=== PATIENT | male | born 1960 | race Caucasian/White ===

== ENCOUNTER 2017-12-13 10:33 | Day surgery (SDC) | payer BC ==
[~2017-12-13 10:33] MED LIST: Lactated Ringers 1,000 ML IV SCH; Midazolam 1 MG/ML 2 ML SDV ONE; Propofol 200 MG/20 ML SDV ONE; fentaNYL 100 MCG/2 ML SDV ONE
--- NOTE | 2017-12-13 11:11 | PCM.PREANE ---
Preanesthetic Assessment - Anesthesia/Transfusion/Family Hx Anesthesia History: Prior Anesthesia Without Reaction Family History of Anesthesia Reaction: No Transfusion History: No Prior Transfusion(s) Intubation History: Unknown - Review of Systems General: No Symptoms Pulmonary: No Symptoms Cardiovascular: No Symptoms Gastrointestinal: Constipation Neurological: No Symptoms Other: Reports: None - Physical Assessment Height: 1.73 m Weight: 81.193 kg ASA Class: 2 Mental Status: Alert & Oriented x3 Airway Class: Mallampati = 2 Dentition: Reports: Normal Dentition Thyro-Mental Finger Breadths: 3 Mouth Opening Finger Breadths: 2 ROM/Head Extension: Full Lungs: Clear to Auscultation, Normal Respiratory Effort Cardiovascular: Regular Rate, Regular Rhythm - Allergies Allergies/Adverse Reactions: Allergies Allergy/AdvReac Type Severity Reaction Status Date / Time No Known Allergies Allergy Verified 12/07/17 13:07 - Blood Blood Available: No - Anesthesia Plan Pre-Op Medication Ordered: None - Acknowledgements Anesthesia Type Planned: MAC Pt an Appropriate Candidate for the Planned Anesthesia: Yes Alternatives and Risks of Anesthesia Discussed w Pt/Guardian: Yes Pt/Guardian Understands and Agrees with Anesthesia Plan: Yes PreAnesthesia Questionnaire Other HEENT History: using reading glasses Cardiovascular History: Reports: High Cholesterol, Other (See Below) Other Cardiovascular History: was prescribed statin medication- never took it Gastrointestinal History: Reports: Other (See Below) Other Gastrointestinal History: occasional heartburn Musculoskeletal History: Reports: Arthritis, Back Pain, Chronic Neurological History: Reports: Concussion Psychiatric History: Reports: Depression - Past Surgical History GI Surgical History: Reports: EGD Musculoskeletal Surgical History: Reports: Arthroscopic Knee - SUBSTANCE USE Smoking Status *Q: Never Smoker Recreational Drug Use History: No - HOME MEDS Home Medications: Home Meds . [No Known Home Meds] 12/07/17 [History] - CURRENT (IN HOUSE) MEDS Current Meds: Current Medications Lactated Ringer's (Ringers, Lactated) 1,000 mls @ 125 mls/hr IV ASDIRECTED [facility] Last Admin: 12/13/17 10:56 Dose: 125 mls/hr Discontinued Medications Fentanyl (Sublimaze) Confirm Administered Dose 100 mcg .ROUTE .STK-MED ONE Stop: 12/13/17 08:11 Midazolam HCl (Versed 1 Mg/Ml) Confirm Administered Dose 2 mg .ROUTE .STK-MED ONE Stop: 12/13/17 08:11 Propofol (Diprivan 20 Ml) Confirm Administered Dose 200 mg .ROUTE .[facility] ONE Stop: 12/13/17 08:11
[2017-12-13] MEDS ORDERED: Propofol 200 MG/20 ML SDV ONE (11:47)
--- NOTE | 2017-12-13 12:06 | PCM.OPNOTE ---
- General Post-Op/Procedure Note Date of Surgery/Procedure: 12/13/17 Operative Procedure(s): Colonoscopy with cold sigmoid colon polypectomy Pre Op Diagnosis: Change in bowel habits. Decreased stool caliber. Post-Op Diagnosis: Sigmoid polyp. Sigmoid diverticulosis. Anesthesia Technique: MAC (ASA II) Primary Surgeon: Ketan Dior Condition: Good Free Text/Narrative:: Dictation [id number] CPT CODE [id number]
[2017-12-13] MEDS ORDERED: Lactated Ringers 1,000 ML IV SCH (12:15)
--- NOTE | 2017-12-13 12:58 | PCM48HPAN ---
Post Anesthesia Note - EVALUATION WITHIN 48HRS OF ANESTHETIC Vital Signs in Normal Range: Yes Patient Participated in Evaluation: Yes Respiratory Function Stable: Yes Airway Patent: Yes Hydration Status Stable: Yes Pain Control Satisfactory: Yes Nausea and Vomiting Control Satisfactory: Yes Mental Status Recovered: Yes Resp Rate: 11 - COMMENTS/OBSERVATIONS Free Text/Narrative:: no anesthesia problems
--- NOTE | 2017-12-13 13:01 | OR ---
SURGEON: Ketan Dior M.D. DATE OF PROCEDURE: 12/13/2017 OPERATION PERFORMED: Colonoscopy with cold sigmoid polypectomy. ANESTHESIA: MAC. ASA CLASSIFICATION: II. PREOPERATIVE DIAGNOSES: Change in bowel habits with increasing constipation and decreased caliber of stool. POSTOPERATIVE DIAGNOSES: 1. Small sigmoid polyp. 2. Sigmoid diverticulosis. DESCRIPTION OF PROCEDURE: The patient was taken to the endoscopy room and positioned on the endoscopy table in the left lateral decubitus position. Time-out was called for appropriate identification of the patient and procedure. Monitored anesthesia care was provided. The colonoscope was inserted into the rectum and advanced with moderate difficulty to the cecum where the colonoscope was retroflexed to visualize the ascending colon from below. The colonoscope was then straightened and slowly withdrawn. The cecum, ascending colon, hepatic flexure, transverse colon, splenic flexure, and descending colon showed no tumors, polyps, diverticula, angiodysplasia, or evidence of inflammatory bowel disease. The colonoscope was withdrawn through the sigmoid colon. One small polyp was encountered and removed with the cold biopsy forceps. Numerous small sigmoid diverticula were noted. No stricture, spasm, or bleeding was noted. No tumors were encountered. Once the colonoscope was withdrawn to the rectum, it was retroflexed to visualize the anal orifice from above. Again, no tumors or polyps were seen, and there were no acute hemorrhoidal changes. The colonoscope was then straightened, the rectum aspirated, and the colonoscope removed. The patient tolerated the procedure well and was taken to recovery room in stable condition. CHESTER / JOSEFINA /[id number]
== END 2017-12-13 13:00 | disposition home or self-care (01) ==
LOC: MW.SDS 10:33
PROVIDERS: ATTEND Surgery
DX: D12.5 Benign neoplasm of sigmoid colon (principal); K57.30 Diverticulosis of large intestine without perforation or abscess without bleeding; E78.00 Pure hypercholesterolemia, unspecified; M19.90 Unspecified osteoarthritis, unspecified site; G89.29 Other chronic pain; M54.9 Dorsalgia, unspecified; F32.9 Major depressive disorder, single episode, unspecified; E78.5 Hyperlipidemia, unspecified; E66.9 Obesity, unspecified; Z68.27 Body mass index [BMI] 27.0-27.9, adult; Z79.899 Other long term (current) drug therapy
CPT/HCPCS: 45380; J2250; J3010; J7120; 88305; J2704

== ENCOUNTER 2019-01-27 09:53 | Emergency (ER) | payer BC ==
--- NOTE | 2019-01-27 09:56 | EDM.PDOC ---
ED HPI GENERAL MEDICAL PROBLEM - General Chief Complaint: Abdominal Pain Stated Complaint: BODY FEELS NUMB Time Seen by Provider: 01/27/19 09:56 Source of Information: Reports: Patient - History of Present Illness INITIAL COMMENTS - FREE TEXT/NARRATIVE: HISTORY AND PHYSICAL: History of present illness: [Patient presents with some intermittent abdominal pain over the last few months associated with food he does eat [employer] regularly and has his pain an hour to 3 hours after eating last night he awoke with abdominal pain which is cause some anxiety?panic as this has been going on for some time now As recently seen his primary care provider and cleaned out his bowels with MiraLAX over the last week constipation has been a problem currently it is not with MiraLAX No fever nausea vomiting chills sweats no chest pain shortness breath headache dizziness palpitation no bowel or urine symptoms at current ] Review of systems: As per history of present illness and below otherwise all systems reviewed and negative. Past medical history: As per history of present illness and as reviewed below otherwise noncontributory. Surgical history: As per history of present illness and as reviewed below otherwise noncontributory. Social history: No reported history of drug or alcohol abuse. Family history: As per history of present illness and as reviewed below otherwise noncontributory. Physical exam: HEENT: Atraumatic, normocephalic, pupils reactive, negative for conjunctival pallor or scleral icterus, mucous membranes moist, throat clear, neck supple, nontender, trachea midline. Lungs: Clear to auscultation, breath sounds equal bilaterally, chest nontender. Heart: S1S2, regular, negative for clicks, rubs, or JVD. Abdomen: Soft, nondistended, nontender. Negative for masses or hepatosplenomegaly. Negative for costovertebral tenderness. Pelvis: Stable nontender. Genitourinary: Deferred. Rectal: Deferred. Extremities: Atraumatic, negative for cords or calf pain. Neurovascular unremarkable. Neuro: Awake, alert, oriented. Cranial nerves II through XII unremarkable. Cerebellum unremarkable. Motor and sensory unremarkable throughout. Exam nonfocal. Diagnostics: [EBC CMP UA lipase Abdomen limited ultrasound ] Therapeutics: [ bland diet Follow-up with general surgery ] Impression: [ cholelithiasis Anxiety about health ] Definitive disposition and diagnosis as appropriate pending reevaluation and review of above. Abdominal Pain Score (Numeric/FACES): 10 - Related Data Allergies Allergy/AdvReac Type Severity Reaction Status Date / Time No Known Allergies Allergy Verified 01/27/19 09:55 Home Meds: Home Meds Sertraline [Zoloft] 50 mg PO DAILY 01/27/19 [History] Past Medical History Other HEENT History: using reading glasses Cardiovascular History: Reports: High Cholesterol, Other (See Below) Other Cardiovascular History: was prescribed statin medication- never took it Gastrointestinal History: Reports: Other (See Below) Other Gastrointestinal History: occasional heartburn Musculoskeletal History: Reports: Arthritis, Back Pain, Chronic Neurological History: Reports: Concussion Psychiatric History: Reports: Depression - Past Surgical History GI Surgical History: Reports: EGD Musculoskeletal Surgical History: Reports: Arthroscopic Knee ED ROS GENERAL - Review of Systems Review Of Systems: See Below ED EXAM, GENERAL - Physical Exam Exam: See Below Course - Vital Signs Last Recorded V/S: Last Vital Signs Temp 96.5 F 01/27/19 09:56 Pulse 74 01/27/19 11:28 Resp 16 01/27/19 11:28 BP 142/92 H 01/27/19 11:28 Pulse Ox 99 01/27/19 11:28 - Orders/Labs/Meds Orders: Active Orders 24 hr Category Date Time Status EKG Documentation Completion [RC] STAT Care 01/27/19 09:55 Active UA RFX LORE AND CULT IF INDIC [URIN] Stat Lab 01/27/19 09:55 Ordered Labs: Laboratory Tests 01/27/19 01/27/19 01/27/19 Range/Units 09:18 09:58 09:58 WBC 8.23 (4.0-11.0) K/uL RBC 5.60 (4.50-5.90) M/uL Hgb 16.8 (13.0-17.0) g/dL Hct 48.5 (38.0-50.0) % MCV 86.6 (80.0-98.0) fL MCH 30.0 (27.0-32.0) pg MCHC 34.6 (31.0-37.0) g/dL RDW Std Deviation 42.0 (28.0-62.0) fl RDW Coeff of Mati 13 (11.0-15.0) % Plt Count 282 (150-400) K/uL MPV 9.80 (7.40-12.00) fL Neut % (Auto) 72.8 (48.0-80.0) % Lymph % (Auto) 21.1 (16.0-40.0) % Sumter % (Auto) 5.3 (0.0-15.0) % Eos % (Auto) 0.6 (0.0-7.0) % Baso % (Auto) 0.2 (0.0-1.5) % Neut # (Auto) 6.0 H (1.4-5.7) K/uL Lymph # (Auto) 1.7 (0.6-2.4) K/uL Sumter # (Auto) 0.4 (0.0-0.8) K/uL Eos # (Auto) 0.1 (0.0-0.7) K/uL Baso # (Auto) 0.0 (0.0-0.1) K/uL Nucleated RBC % 0.0 /100WBC Nucleated RBCs # 0 K/uL Sodium 131 L (136-148) mmol/L Potassium 3.9 (3.5-5.1) mmol/L Chloride 97 L (98-107) mmol/L Carbon Dioxide 23.2 (21.0-32.0) mmol/L BUN 15 (7.0-18.0) mg/dL Creatinine 1.2 (0.8-1.3) mg/dL Est Cr Clr Drug Dosing 65.71 mL/min Estimated GFR (MDRD) > 60.0 ml/min Glucose 141 H (74-106) mg/dL Calcium 9.8 (8.5-10.1) mg/dL Total Bilirubin 1.5 H (0.2-1.0) mg/dL AST 24 (15-37) IU/L ALT 29 (14-63) IU/L Alkaline Phosphatase 88 (46-116) U/L Troponin I < 0.050 (0.000-0.056) ng/mL Total Protein 8.5 H (6.4-8.2) g/dL Albumin 4.5 (3.4-5.0) g/dL Globulin 4.0 (2.6-4.0) g/dL Albumin/Globulin Ratio 1.1 (0.9-1.6) Lipase 115 (73-393) U/L Meds: Medications Discontinued Medications Generic Name Dose Route Start Last Admin Trade Name Isabel PRN Reason Stop Dose Admin Sodium Chloride 1,000 mls @ 999 mls/hr 01/27/19 10:01 01/27/19 10:10 Normal Saline IV 01/27/19 11:01 999 mls/hr STAT ONE Administration Lorazepam 1 mg 01/27/19 10:01 01/27/19 10:10 Ativan IVPUSH 01/27/19 10:02 1 mg ONETIME ONE Administration Departure - Departure Time of Disposition: 12:19 Disposition: Home, Self-Care 01 Condition: Good Clinical Impression: Cholelithiasis - Discharge Information Forms: ED Department Discharge Additional Instructions: Plan diet as discussed Return if symptoms persist or worsen or if new concerning symptoms develop Follow-up with general surgery, call phone number below to schedule appropriate follow-up [facility] - General Surgery [address], [address] [place] [address] The following information is given to patients seen in the emergency department who are being discharged to home. This information is to outline your options for follow-up care. We provide all patients seen in our emergency department with a follow-up referral. The need for follow-up, as well as the timing and circumstances, are variable depending upon the specifics of your emergency department visit. If you don't have a primary care physician on staff, we will provide you with a referral. We always advise you to contact your personal physician following an emergency department visit to inform them of the circumstance of the visit and for follow-up with them and/or the need for any referrals to a consulting specialist. The emergency department will also refer you to a specialist when appropriate. This referral assures that you have the opportunity for follow-up care with a specialist. All of these measure are taken in an effort to provide you with optimal care, which includes your follow-up. Under all circumstances we always encourage you to contact your private physician who remains a resource for coordinating your care. When calling for follow-up care, please make the office aware that this follow-up is from your recent emergency room visit. If for any reason you are refused follow-up, please contact the [facility] emergency department at and asked to speak to the emergency department charge nurse. - My Orders Last 24 Hours: My Active Orders 01/27/19 09:55 EKG Documentation Completion [RC] STAT UA RFX LORE AND CULT IF INDIC [URIN] Stat - Assessment/Plan Last 24 Hours: My Active Orders 01/27/19 09:55 EKG Documentation Completion [RC] STAT UA RFX LORE AND CULT IF INDIC [URIN] Stat
[2019-01-27] MEDS ORDERED: Sodium Chloride 0.9% 1,000 ML IV ONE (10:01)
[2019-01-27] MEDS ORDERED: LORazepam 2 MG/ML SDV IVPUSH ONE (10:01)
[2019-01-27 10:36] LABS: CHLORIDE,CL 97 mmol/L (98-107); SODIUM,NA 131 mmol/L (136-148)
--- NOTE | 2019-01-27 11:19 | CR ---
INDICATION: Chest pain COMPARISON: none TECHNIQUE: Portable AP erect chest performed at 10:05 a.m. FINDINGS: The lungs are clear. There is no evidence of pneumothorax. The heart, mediastinum and pulmonary vessels are of normal size. There is no evidence of pleural fluid. IMPRESSION: Negative chest. Dictated by Ryan Quiroga MD @ Jan 27 2019 11:18AM Signed by Dr. Ryan Quiroga @ Jan 27 2019 11:18AM
--- NOTE | 2019-01-27 12:11 | US ---
INDICATION: Abdominal pain for the last 3 weeks. COMPARISON: Chest radiograph January 27, 2019. TECHNIQUE: Ultrasound examination of the right upper quadrant of the abdomen. FINDINGS: Evidence of cholelithiasis. Nondilated common bile duct measuring 4.2 mm in diameter. Gallbladder wall is measuring 2.8 mm in thickness without any pericholecystic fluid collections. Sonographic Moreira`s sign is negative. No pancreatic pathology. Diffuse increase in echogenicity of the liver; rule out fatty infiltration. No focal hepatic pathology. The right kidney is measuring 11.5 x 6.4 x 5.7 cm without any obstructive uropathy or perinephric pathology. A cyst identified in the right kidney measuring 1.4 x 1.8 x 2 cm. IMPRESSION: 1. Cholelithiasis. 2. No evidence of biliary duct dilatation. 3. Sonographic Moreira`s sign is negative. 4. Benign cyst right kidney. 5. Fatty infiltration of the liver. Dictated by Eliz Carrera MD @ Jan 27 2019 12:04PM Signed by Dr. Eliz Carrera @ Jan 27 2019 12:07PM
== END 2019-01-27 12:30 | disposition home or self-care (01) ==
LOC: MW.ED 09:53
DX: K80.20 Calculus of gallbladder without cholecystitis without obstruction (principal); F41.9 Anxiety disorder, unspecified; M19.90 Unspecified osteoarthritis, unspecified site; Z79.899 Other long term (current) drug therapy; F32.9 Major depressive disorder, single episode, unspecified
CPT/HCPCS: 36415; 71045; 76705; 80053; 83690; 84484; 85025; 93005; 96361; 96374; 99284; J2060; J7040; 99283

== ENCOUNTER 2019-02-01 06:31 | Day surgery (SDC) | payer BC ==
[~2019-02-01 06:31] MED LIST changes: -Midazolam 1 MG/ML 2 ML SDV ONE; -Propofol 200 MG/20 ML SDV ONE; +ceFAZolin 2 GM in Premix Bag 1 BAG IV ONE; -fentaNYL 100 MCG/2 ML SDV ONE
[2019-02-01] MEDS ORDERED: fentaNYL 100 MCG/2 ML SDV ONE ×2 (07:08→08:40)
[2019-02-01] MEDS ORDERED: Lidocaine 2% 5 ML SDV ONE (07:08)
[2019-02-01] MEDS ORDERED: Midazolam 1 MG/ML 2 ML SDV ONE (07:08)
[2019-02-01] MEDS ORDERED: Rocuronium 100 MG/10 ML MDV ONE (07:09)
[2019-02-01] MEDS ORDERED: Propofol 200 MG/20 ML SDV ONE (07:09)
[2019-02-01] MEDS ORDERED: Scopolamine 1.5 MG Transdermal Patch TRDERM PRN (07:25)
[2019-02-01] MEDS ORDERED: Bupivacaine 25%/EPINEPHrine/PF 30 ML ONE (07:26)
--- NOTE | 2019-02-01 07:26 | PCM.PREANE ---
Preanesthetic Assessment - Anesthesia/Transfusion/Family Hx Anesthesia History: Prior Anesthesia Without Reaction Family History of Anesthesia Reaction: No Transfusion History: No Prior Transfusion(s) Intubation History: Unknown - Review of Systems General: No Symptoms Pulmonary: No Symptoms Cardiovascular: No Symptoms Gastrointestinal: No Symptoms Neurological: No Symptoms Other: Reports: None - Physical Assessment NPO Status Date: 01/31/19 NPO Status Time: 21:00 O2 Sat by Pulse Oximetry: 99 Respiratory Rate: 16 Vital Signs: Last Vital Signs Temp 96.4 F 02/01/19 06:50 Pulse 75 02/01/19 06:50 Resp 16 02/01/19 06:50 BP 115/82 02/01/19 06:50 Pulse Ox 99 02/01/19 06:50 Height: 5 ft 8 in Weight: 72.575 kg ASA Class: 1 Mental Status: Alert & Oriented x3 Airway Class: Mallampati = 2 Dentition: Reports: Normal Dentition ROM/Head Extension: Full Lungs: Clear to Auscultation, Normal Respiratory Effort Cardiovascular: Regular Rate, Regular Rhythm - Allergies Allergies/Adverse Reactions: Allergies Allergy/AdvReac Type Severity Reaction Status Date / Time No Known Allergies Allergy Verified 01/30/19 16:52 - Blood Blood Available: No - Anesthesia Plan Pre-Op Medication Ordered: None - Acknowledgements Anesthesia Type Planned: General Anesthesia Pt an Appropriate Candidate for the Planned Anesthesia: Yes Alternatives and Risks of Anesthesia Discussed w Pt/Guardian: Yes Pt/Guardian Understands and Agrees with Anesthesia Plan: Yes PreAnesthesia Questionnaire Other HEENT History: wears glasses Cardiovascular History: Gastrointestinal History: Reports: Other (See Below) Other Gastrointestinal History: occasional heartburn Musculoskeletal History: Neurological History: Reports: Concussion Psychiatric History: Reports: Depression - Infectious Disease History Infectious Disease History: Reports: None - Past Surgical History GI Surgical History: Reports: Colonoscopy, EGD Musculoskeletal Surgical History: Reports: Arthroscopic Knee - SUBSTANCE USE Smoking Status *Q: Never Smoker Recreational Drug Use History: No - HOME MEDS Home Medications: Home Meds Sertraline [Zoloft] 50 mg PO DAILY 01/27/19 [History] - CURRENT (IN HOUSE) MEDS Current Meds: Current Medications Lactated Ringer's (Ringers, Lactated) 1,000 mls @ 125 mls/hr IV ASDIRECTED [facility] Last Admin: 02/01/19 07:00 Dose: 125 mls/hr Discontinued Medications Fentanyl (Sublimaze) Confirm Administered Dose 100 mcg .ROUTE .STK-MED ONE Stop: 02/01/19 07:09 Cefazolin Sodium/Dextrose 2 gm (/ Premix) 50 mls @ 100 mls/hr IV ONETIME ONE Stop: 02/01/19 05:29 Lidocaine (Xylocaine-Mpf 2%) Confirm Administered Dose 5 ml .ROUTE .STK-MED ONE Stop: 02/01/19 07:09 Midazolam HCl (Versed 1 Mg/Ml) Confirm Administered Dose 2 mg .ROUTE .STK-MED ONE Stop: 02/01/19 07:09 Propofol (Diprivan 20 Ml) Confirm Administered Dose 200 mg .ROUTE .STK-MED ONE Stop: 02/01/19 07:10 Rocuronium Goodrich (Zemuron) Confirm Administered Dose 100 mg .ROUTE .STK-MED ONE Stop: 02/01/19 07:10
[2019-02-01] MEDS ORDERED: Acetaminophen/oxyCODONE 325-5 MG Tab PO PRN (07:52)
[2019-02-01 08:33] LABS: CHLORIDE,CL 106 mmol/L (98-107); SODIUM,NA 139 mmol/L (136-148)
[2019-02-01] MEDS ORDERED: Octyl 2-Cyanoacrylate 1 Tube ONE (08:37)
[2019-02-01] MEDS ORDERED: Sugammadex Sodium 200 MG/2 ML VIAL ONE (08:37)
[2019-02-01] MEDS ORDERED: Phenylephrine/Normal Saline 100 MCG/ML 10 ML Syringe ONE (08:38)
[2019-02-01] MEDS ORDERED: ceFAZolin/Dextrose,Iso-Osmotic 2 GM/50 ML Duplex Bag IV ONE (08:38)
[2019-02-01] MEDS ORDERED: Ondansetron 4 MG/2 ML SDV ONE (09:01)
[2019-02-01] MEDS ORDERED: fentaNYL 100 MCG/2 ML SDV IVPUSH PRN (09:40)
[2019-02-01] MEDS ORDERED: HYDROmorphone 2 MG/ML SDV IVPUSH ONE (09:40)
[2019-02-01] MEDS ORDERED: Ondansetron 4 MG/2 ML SDV IVPUSH ONE (09:48)
[2019-02-01] MEDS ORDERED: Dexamethasone 10 MG/ML SDV IVPUSH ONE (09:49)
--- NOTE | 2019-02-01 09:56 | PCM.OPNOTE ---
- General Post-Op/Procedure Note Date of Surgery/Procedure: 02/01/19 Operative Procedure(s): 1) lap julisa. 2) biopsy peritoneal deposit Findings: gb is yellow and green cw cholecystitis, and adherence to surrounding organs, cw chronicity; and a peritoneal deposit was biopsyed; incidental finding;see [id number] Pre Op Diagnosis: acute and chronic cholecystitis Post-Op Diagnosis: Same Anesthesia Technique: General ET Tube Primary Surgeon: Varghese Bear Pathology: sent Complications: None Condition: Good Free Text/Narrative:: Intake & Output 01/31/19 02/01/19 02/01/19 22:59 06:59 14:59 Output Total 75 Balance -75
[2019-02-01] MEDS ORDERED: HYDROmorphone 2 MG/ML Syringe ONE (09:57)
[2019-02-01] MEDS ORDERED: Dexamethasone 4 MG/ML 5 ML MDV ONE (10:00)
--- NOTE | 2019-02-01 11:06 | PCM.POSTAN ---
POST ANESTHESIA ASSESSMENT - MENTAL STATUS Mental Status: Alert, Oriented - RESPIRATORY Respiratory Status: Respiratory Rate WNL, Airway Patent, O2 Saturation Stable - CARDIOVASCULAR CV Status: Pulse Rate WNL, Blood Pressure Stable - GASTROINTESTINAL GI Status: No Symptoms - POST OP HYDRATION Hydration Status: Adequate & Stable
--- NOTE | 2019-02-01 11:49 | PCM48HPAN ---
Post Anesthesia Note - EVALUATION WITHIN 48HRS OF ANESTHETIC Vital Signs in Normal Range: Yes Patient Participated in Evaluation: Yes Respiratory Function Stable: Yes Airway Patent: Yes Cardiovascular Function Stable: Yes Hydration Status Stable: Yes Pain Control Satisfactory: Yes Nausea and Vomiting Control Satisfactory: Yes Mental Status Recovered: Yes Resp Rate: 16
--- NOTE | 2019-02-01 12:43 | OR ---
SURGEON: Varghese Bear MD DATE OF PROCEDURE: 02/01/2019 PREOPERATIVE DIAGNOSIS: Acute on chronic cholecystitis. POSTOPERATIVE DIAGNOSIS: Acute on chronic cholecystitis. PROCEDURE PROPOSED: Laparoscopic cholecystectomy. PROCEDURES PERFORMED: 1. Laparoscopic cholecystectomy. 2. Biopsy of peritoneal deposit. PRIMARY SURGEON: Varghese Bear MD. COMPLICATIONS: None. PROCEDURE NOTE: The patient was taken to the operating room and placed in the supine position. After the intubation of general endotracheal anesthesia, the patient's abdomen was prepped and draped in the usual sterile fashion. Using [email or web address], a 12 mm trocar was placed supraumbilically and then followed with pneumoperitoneum. A 5 mm trocar was placed in the epigastrium and two 5 mm trocars placed in the right upper quadrant. The placement of the last three trocars was done under direct video supervision. Upon gaining entrance to the abdominal cavity, an extensive examination was then performed. The gallbladder was located and identified and retracted to the dome of the liver at the triangle of Calot. The cystic duct was clipped three more times and then using the endoscopic clip, was transected with placement of the endoscopic clip and transection was performed with care, ensuring the posterior prong of the instruments were clearly visualized prior to exercising the procedure. The gallbladder was dissected using electrocautery out of the liver bed and then removed using endoscopic bag through the umbilical site. The gallbladder was removed en bloc and there was no bile spillage and this was then followed with extensive irrigation until the bile was clear from blood and bile. After the gallbladder was removed, on examination noted to have a peritoneal deposit in the anterior abdomen wall and this was then removed, is like a 5 x 4 mm fatty tissue. The trocars were then removed under direct video supervision. The 12 mm umbilical site was then closed with deep stitches using 0 Vicryl followed with proximal stitches using 3-0 Vicryl and Dermabond. The other three trocar sites were closed with 3-0 Vicryl followed with approximation of skin with Dermabond. The patient was then awakened and extubated and transferred to the recovery room in hemodynamically stable condition. At the conclusion of the surgery, before closing the abdominal wound, instrument count and sponge count were done and were correct. The patient tolerated the procedure well and there were no intraoperative complications. Dr. Bear was present through the whole procedure. Just before surgery, a timeout was called. The patient was identified and procedure identified and procedure started. FINDINGS: 1. Gallbladder is distended, yellow and green, consistent with chronic cholecystitis. 2. Attachment of surrounding organ such as a chronicity. 3. Wall is not thickened. 4. There is gallstone. 5. There is a 5 x 4 mm peritoneal deposit, was biopsied and sent for pathology. Procedures performed, as above dictated, and intraoperative findings, as dictated. BORIS / JOSEFINA /[id number]
== END 2019-02-01 13:12 | disposition home or self-care (01) ==
LOC: MW.SDS 06:31
PROVIDERS: ATTEND Surgery
DX: K80.12 Calculus of gallbladder with acute and chronic cholecystitis without obstruction (principal); K65.4 Sclerosing mesenteritis; K59.00 Constipation, unspecified; E78.5 Hyperlipidemia, unspecified; F32.9 Major depressive disorder, single episode, unspecified; F41.9 Anxiety disorder, unspecified; Z79.899 Other long term (current) drug therapy
CPT/HCPCS: 00790; 36415; 80053; 88304; 88305; A9270-GY; J0690; J1100; J1170; J2001; J2250; J2370; J2405; J2704; J3010; J3490; J7120

== ENCOUNTER 2019-02-02 15:40 | Emergency (ER) | payer BC ==
[2019-02-02] MEDS ORDERED: Sodium Chloride 0.9% 1,000 ML IV ONE (16:07)
--- NOTE | 2019-02-02 16:17 | EDM.PDOC ---
ED HPI GENERAL MEDICAL PROBLEM - General Chief Complaint: Back Pain or Injury Stated Complaint: SHOULDER PAIN Time Seen by Provider: 02/02/19 16:14 Source of Information: Reports: Patient - History of Present Illness INITIAL COMMENTS - FREE TEXT/NARRATIVE: HISTORY AND PHYSICAL: History of present illness: []A shunt is postop day 2 for a cholecystectomy he presents with right shoulder pain, that is relieved by lying down he denies any trauma or injury spoken with his surgeon Dr. Kate recommended he may need an x-ray of the shoulder A she has full painless ranges of motion of the shoulder we did discuss postop pain symptoms I had ordered some lab and CT to look for a bile leak postoperatively however patient declines as no pain seems to be purely positional and normal postoperative course Patient has refused the lab and imaging is in no distress has no fever nausea vomiting chills sweats no chest pain shortness breath headache dizziness palpitation no bowel or urine symptoms and is pain-free at this time Review of systems: As per history of present illness and below otherwise all systems reviewed and negative. Past medical history: As per history of present illness and as reviewed below otherwise noncontributory. Surgical history: As per history of present illness and as reviewed below otherwise noncontributory. Social history: No reported history of drug or alcohol abuse. Family history: As per history of present illness and as reviewed below otherwise noncontributory. Physical exam: HEENT: Atraumatic, normocephalic, pupils reactive, negative for conjunctival pallor or scleral icterus, mucous membranes moist, throat clear, neck supple, nontender, trachea midline. Lungs: Clear to auscultation, breath sounds equal bilaterally, chest nontender. Heart: S1S2, regular, negative for clicks, rubs, or JVD. Abdomen: Soft, nondistended, nontender. Negative for masses or hepatosplenomegaly. Negative for costovertebral tenderness. Pelvis: Stable nontender. Genitourinary: Deferred. Rectal: Deferred. Extremities: Atraumatic, negative for cords or calf pain. Neurovascular unremarkable. Neuro: Awake, alert, oriented. Cranial nerves II through XII unremarkable. Cerebellum unremarkable. Motor and sensory unremarkable throughout. Exam nonfocal. Diagnostics: [A shunt refuses lab and imaging ] Therapeutics: Continue current treatment ] Impression: Medical screening exam [Postop day 2 cholecystectomy Chronic history of baseline ] Definitive disposition and diagnosis as appropriate pending reevaluation and review of above. Bilateral Shoulder Pain Score (Numeric/FACES): 10 - Related Data Allergies Allergy/AdvReac Type Severity Reaction Status Date / Time No Known Allergies Allergy Verified 02/02/19 16:01 Home Meds: Home Meds Sertraline [Zoloft] 50 mg PO DAILY 01/27/19 [History] Past Medical History Other HEENT History: wears glasses Cardiovascular History: Gastrointestinal History: Reports: Other (See Below) Other Gastrointestinal History: occasional heartburn Musculoskeletal History: Neurological History: Reports: Concussion Psychiatric History: Reports: Depression - Infectious Disease History Infectious Disease History: Reports: Chicken Pox - Past Surgical History GI Surgical History: Reports: Cholecystectomy, Colonoscopy, EGD Musculoskeletal Surgical History: Reports: Arthroscopic Knee Social & Family History - Family History Family Medical History: Noncontributory - Tobacco Use Smoking Status *Q: Never Smoker Second Hand Smoke Exposure: No - Caffeine Use Caffeine Use: Reports: Coffee - Recreational Drug Use Recreational Drug Use: No ED ROS GENERAL - Review of Systems Review Of Systems: See Below ED EXAM, GENERAL - Physical Exam Exam: See Below Course - Vital Signs Last Recorded V/S: Last Vital Signs Temp 97.6 F 02/02/19 16:01 Pulse 68 02/02/19 16:01 Resp 16 02/02/19 16:01 BP 143/92 H 02/02/19 16:01 Pulse Ox 93 L 02/02/19 16:01 - Orders/Labs/Meds Orders: Active Orders 24 hr Category Date Time Status Abdomen Pelvis w Cont [CT] Stat Exams 02/02/19 16:07 Stop Req Medication Orders Sodium Chloride (Normal Saline) 1,000 mls @ 999 mls/hr IV STAT ONE Stop: 02/02/19 17:07 Meds: Medications Generic Name Dose Route Start Last Admin Trade Name Freq PRN Reason Stop Dose Admin Sodium Chloride 1,000 mls @ 999 mls/hr 02/02/19 16:07 Normal Saline IV 02/02/19 17:07 STAT ONE Departure - Departure Time of Disposition: 16:16 Disposition: Home, Self-Care 01 Condition: Good Clinical Impression: Encounter for medical screening examination - Discharge Information Referrals: Haroldo Melchor MD [Primary Care Provider] - Additional Instructions: The following information is given to patients seen in the emergency department who are being discharged to home. This information is to outline your options for follow-up care. We provide all patients seen in our emergency department with a follow-up referral. The need for follow-up, as well as the timing and circumstances, are variable depending upon the specifics of your emergency department visit. If you don't have a primary care physician on staff, we will provide you with a referral. We always advise you to contact your personal physician following an emergency department visit to inform them of the circumstance of the visit and for follow-up with them and/or the need for any referrals to a consulting specialist. The emergency department will also refer you to a specialist when appropriate. This referral assures that you have the opportunity for follow-up care with a specialist. All of these measure are taken in an effort to provide you with optimal care, which includes your follow-up. Under all circumstances we always encourage you to contact your private physician who remains a resource for coordinating your care. When calling for follow-up care, please make the office aware that this follow-up is from your recent emergency room visit. If for any reason you are refused follow-up, please contact the [facility] emergency department at and asked to speak to the emergency department charge nurse. - My Orders Last 24 Hours: My Active Orders 02/02/19 16:07 Abdomen Pelvis w Cont [CT] Stat - Assessment/Plan Last 24 Hours: My Active Orders 02/02/19 16:07 Abdomen Pelvis w Cont [CT] Stat
== END 2019-02-02 16:23 | disposition home or self-care (01) ==
LOC: MW.ED 15:40
DX: Z13.9 Encounter for screening, unspecified (principal); F32.9 Major depressive disorder, single episode, unspecified; Z79.899 Other long term (current) drug therapy
CPT/HCPCS: 99282; 99284-25

== ENCOUNTER 2019-03-10 15:14 | Emergency (ER) | payer BC ==
[2019-03-10] MEDS ORDERED: Sodium Chloride 0.9% 1,000 ML IV ONE (15:36)
[2019-03-10] MEDS ORDERED: Morphine 4 MG/ML Syringe IVPUSH ONE ×2 (16:20→18:44)
[2019-03-10] MEDS ORDERED: Ondansetron 4 MG/2 ML SDV IVPUSH ONE (16:20)
--- NOTE | 2019-03-10 16:23 | EDM.PDOC ---
ED HPI GENERAL MEDICAL PROBLEM - General Chief Complaint: Abdominal Pain Stated Complaint: ABDOMINAL PAIN Time Seen by Provider: 03/10/19 16:17 Source of Information: Reports: Patient History Limitations: Reports: No Limitations - History of Present Illness INITIAL COMMENTS - FREE TEXT/NARRATIVE: HISTORY AND PHYSICAL: History of present illness: Patient is a 59-year-old male who presents to the emergency room today with complaints of suprapubic pain which he states is aggravated with movement or bearing down or trying to urinate. The suprapubic area is tender to palpate. He describes this as a pressure that is pushing down towards his genitalia. He denies any injury, trauma or falls. Patient denies any fever, chills, headache, change in vision, syncope or near syncope. Denies any chest pain, back pain, shortness of breath or cough. Denies any abdominal pain, nausea, vomiting, diarrhea, constipation. He testicular pain, swelling or erythema. Denies any groin pain or obvious hernias noted. Has not noted any blood in urine or stool. Patient has been eating and drinking appropriately. Review of systems: As per history of present illness and below otherwise all systems reviewed and negative. Past medical history: As per history of present illness and as reviewed below otherwise noncontributory. Surgical history: As per history of present illness and as reviewed below otherwise noncontributory. Social history: See social history for further information Family history: As per history of present illness and as reviewed below otherwise noncontributory. Physical exam: General: Well-developed and well nourished 59-year-old male. Alert and oriented. Nontoxic appearing and mildly uncomfortable with movement and palpation of the suprapubic area. Vital signs are stable and have been reviewed by me. HEENT: Atraumatic, normocephalic, pupils equal and reactive bilaterally, negative for conjunctival pallor or scleral icterus, mucous membranes moist, trachea midline. No drooling or trismus noted. No meningeal signs. No hot potato voice noted. Lungs: Clear to auscultation, breath sounds equal bilaterally, chest nontender. Heart: S1S2, regular rate and rhythm without overt murmur Abdomen: Nondistended, the upper abdomen is soft to palpation, the supra pubic area is firm and tender to palpation. Negative for masses. Negative for costovertebral tenderness. Pelvis is stable without any shahana tenderness. Genitourinary: No testicular swelling, erythema or pain with palpation. No obvious lesions or sores noted. Positive cremasteric reflex bilaterally. No inguinal hernias noted. Skin: Intact, warm, dry. No lesions or rashes noted. Extremities: Atraumatic, moves all extremities per self without difficulty or deficits. Neurovascular unremarkable. Neuro: Awake, alert, oriented. Cranial nerves II through XII unremarkable. Cerebellum unremarkable. Motor and sensory unremarkable throughout. Exam nonfocal. Notes: CT shows acute sigmoid diverticulitis with perforation evidenced by a moderate amount of free air. No abscess. No other acute or significant finding. Dr Dior, general surgeon authorization manager, was consulted on this case. He will come into see the patient. Dr Dior here to see the patient. He would like the patient transfer the patient to [facility]. Dr Casey, ER MD at [facility], was consulted on this case. He has agreed to accept the patient. Patient is aware and agreeable to plan of care. Vital signs are stable. Patient will be transferred via ground EMS. Diagnostics: CBC, CMP, Lipase, UA, Abdominal/Pelvis CT Therapeutics: IV Fluids, Morphine, Zofran, Flagyl, Zosyn Impression: Acute sigmoid diverticulitis with perforation Plan: Transferred to [facility] via ground EMS Definitive disposition and diagnosis as appropriate pending reevaluation and review of above. Bladder Pain Score (Numeric/FACES): 10 - Related Data Allergies Allergy/AdvReac Type Severity Reaction Status Date / Time No Known Allergies Allergy Verified 03/10/19 16:03 Home Meds: Home Meds Sertraline [Zoloft] 50 mg PO DAILY 01/27/19 [History] Past Medical History - Past Health History Medical/Surgical History: Denies Medical/Surgical History Other HEENT History: wears glasses Cardiovascular History: Gastrointestinal History: Reports: Other (See Below) Other Gastrointestinal History: occasional heartburn Musculoskeletal History: Neurological History: Reports: Concussion Psychiatric History: Reports: Depression - Infectious Disease History Infectious Disease History: Reports: Chicken Pox - Past Surgical History GI Surgical History: Reports: Cholecystectomy, Colonoscopy, EGD Musculoskeletal Surgical History: Reports: Arthroscopic Knee Social & Family History - Family History Family Medical History: Noncontributory - Tobacco Use Smoking Status *Q: Never Smoker - Caffeine Use Caffeine Use: Reports: Coffee - Recreational Drug Use Recreational Drug Use: No ED ROS GENERAL - Review of Systems Review Of Systems: ROS reveals no pertinent complaints other than HPI. ED EXAM, RENAL/ - Physical Exam Exam: See Below (See dictation) Course - Vital Signs Last Recorded V/S: Last Vital Signs Temp 99.9 F 03/10/19 18:34 Pulse 78 03/10/19 18:34 Resp 16 03/10/19 18:34 BP 124/83 03/10/19 18:34 Pulse Ox 98 03/10/19 18:34 - Orders/Labs/Meds Orders: Active Orders 24 hr Category Date Time Status metroNIDAZOLE/Normal Saline [Flagyl 500 MG in NS 100 ML Med 03/10/19 18:14 Active ] 500 mg Premix Bag 1 bag IV NOW Medication Orders Metronidazole 500 mg/ Premix 100 mls @ 100 mls/hr IV NOW STA Stop: 03/10/19 19:13 Last Admin: 03/10/19 18:30 Dose: 100 mls/hr Labs: Laboratory Tests 03/10/19 03/10/19 03/10/19 Range/Units 16:10 16:10 17:15 WBC 5.86 (4.0-11.0) K/uL RBC 5.12 (4.50-5.90) M/uL Hgb 15.3 (13.0-17.0) g/dL Hct 45.2 (38.0-50.0) % MCV 88.3 (80.0-98.0) fL MCH 29.9 (27.0-32.0) pg MCHC 33.8 (31.0-37.0) g/dL RDW Std Deviation 43.9 (28.0-62.0) fl RDW Coeff of Mati 14 (11.0-15.0) % Plt Count 225 (150-400) K/uL MPV 9.70 (7.40-12.00) fL Neut % (Auto) 47.8 L (48.0-80.0) % Lymph % (Auto) 42.3 H (16.0-40.0) % [place] % (Auto) 7.0 (0.0-15.0) % Eos % (Auto) 2.6 (0.0-7.0) % Baso % (Auto) 0.3 (0.0-1.5) % Neut # (Auto) 2.8 (1.4-5.7) K/uL Lymph # (Auto) 2.5 H (0.6-2.4) K/uL [place] # (Auto) 0.4 (0.0-0.8) K/uL Eos # (Auto) 0.2 (0.0-0.7) K/uL Baso # (Auto) 0.0 (0.0-0.1) K/uL Nucleated RBC % 0.0 /100WBC Nucleated RBCs # 0 K/uL Sodium 140 (136-148) mmol/L Potassium 4.3 (3.5-5.1) mmol/L Chloride 103 (98-107) mmol/L Carbon Dioxide 27.6 (21.0-32.0) mmol/L BUN 20 H (7.0-18.0) mg/dL Creatinine 0.8 (0.8-1.3) mg/dL Est Cr Clr Drug Dosing 97.38 mL/min Estimated GFR (MDRD) > 60.0 ml/min Glucose 101 (74-106) mg/dL Calcium 9.5 (8.5-10.1) mg/dL Total Bilirubin 1.5 H (0.2-1.0) mg/dL AST 26 (15-37) IU/L ALT 24 (14-63) IU/L Alkaline Phosphatase 91 (46-116) U/L Total Protein 8.1 (6.4-8.2) g/dL Albumin 4.2 (3.4-5.0) g/dL Globulin 3.9 (2.6-4.0) g/dL Albumin/Globulin Ratio 1.1 (0.9-1.6) Lipase 158 (73-393) U/L Urine Color YELLOW Urine Appearance CLEAR Urine pH 6.0 (5.0-8.0) Ur Specific [place] >= 1.030 (1.001-1.035) Urine Protein NEGATIVE (NEGATIVE) mg/dL Urine Glucose (UA) NEGATIVE (NEGATIVE) mg/dL Urine Ketones NEGATIVE (NEGATIVE) mg/dL Urine Occult Blood NEGATIVE (NEGATIVE) Urine Nitrite NEGATIVE (NEGATIVE) Urine Bilirubin NEGATIVE (NEGATIVE) Urine Urobilinogen 0.2 (<2.0) EU/dL Ur Leukocyte Esterase NEGATIVE (NEGATIVE) Meds: Medications Generic Name Dose Route Start Last Admin Trade Name Isabel PRN Reason Stop Dose Admin Metronidazole 500 mg/ Premix 100 mls @ 100 mls/hr 03/10/19 18:14 03/10/19 18: 30 IV 03/10/19 19:13 100 mls/hr NOW STA Administration Discontinued Medications Generic Name Dose Route Start Last Admin Trade Name Isabel PRN Reason Stop Dose Admin Sodium Chloride 1,000 mls @ 999 mls/hr 03/10/19 15:36 03/10/19 16:12 Normal Saline IV 03/10/19 16:36 999 mls/hr STAT ONE Administration Piperacillin Sod/Tazobactam 50 mls @ 100 mls/hr 03/10/19 18:14 03/10/19 18:31 Sod 3.375 gm/ Sodium Chloride IV 03/10/19 18:43 100 mls/hr ONETIME ONE Administration Iopamidol 100 ml 03/10/19 17:35 03/10/19 17:36 Isovue Multipack-370 (76%) IVPUSH 03/10/19 17:36 100 ml ONETIME STA Administration Morphine Sulfate 4 mg 03/10/19 16:20 03/10/19 16:28 Morphine IVPUSH 03/10/19 16:21 4 mg ONETIME ONE Administration Morphine Sulfate 4 mg 03/10/19 18:44 03/10/19 18:59 Morphine IVPUSH 03/10/19 18:45 4 mg ONETIME ONE Administration Ondansetron HCl 4 mg 03/10/19 16:20 03/10/19 16:28 Zofran IVPUSH 03/10/19 16:21 4 mg ONETIME ONE Administration Departure - Departure Time of Disposition: 19:08 Disposition: DC/[facility] to [facility] Clinical Impression: Perforation of sigmoid colon due to diverticulitis - Discharge Information Referrals: Haroldo Melchor MD [Primary Care Provider] - Forms: ED Department Discharge - My Orders Last 24 Hours: My Active Orders 03/10/19 18:14 metroNIDAZOLE/Normal Saline [Flagyl 500 MG in NS 100 ML] 500 mg Premix Bag 1 bag IV NOW - Assessment/Plan Last 24 Hours: My Active Orders 03/10/19 18:14 metroNIDAZOLE/Normal Saline [Flagyl 500 MG in NS 100 ML] 500 mg Premix Bag 1 bag IV NOW
[2019-03-10 16:47] LABS: BLOOD UREA NITROGEN,BUN 20 mg/dL (7.0-18.0); CARBON DIOXIDE,CO2 27.6 mmol/L (21.0-32.0); CHLORIDE,CL 103 mmol/L (98-107); GLUCOSE RANDOM 101 mg/dL (74-106); LIPASE 158 U/L (73-393); POTASSIUM,K 4.3 mmol/L (3.5-5.1); SODIUM,NA 140 mmol/L (136-148)
[2019-03-10] MEDS ORDERED: Iopamidol 755 MG/ML 500 ML Multipack Bottle IVPUSH STA (17:35)
--- NOTE | 2019-03-10 18:10 | CT ---
INDICATION: Lower abdominal pain radiating to the testicles. Painful urination. TECHNIQUE: CT abdomen and pelvis acquired with 100 cc Isovue 370 IV contrast. COMPARISON: None. FINDINGS: Lower chest: Unremarkable. Liver: Unremarkable. Normal in size and attenuation. No masses. Gallbladder and bile ducts: Unremarkable. No stones or inflammation. No biliary dilatation. Pancreas: Unremarkable. No mass or inflammation. Spleen: Unremarkable. Normal in size. No masses. Adrenal glands: Unremarkable. No nodules. Kidneys: Unremarkable. No suspicious masses, stones, or hydronephrosis. No perinephric edema. GI tract: There is acute inflammation amongst diverticula in the proximal sigmoid colon. There is a moderate amount of free air consistent with ruptured acute diverticulitis. No abscess. Remainder of the GI tract is normal in caliber and appearance. Normal appendix. Vasculature: Unremarkable. Mesenteric arteries are patent. Lymph nodes: No lymphadenopathy. Omentum/Peritoneum/Abdominal Wall: Small fat containing umbilical hernia. No masses. Pelvis: Mild prostate gland enlargement. Normal urinary bladder. Bones: No suspicious bone lesions. Mild bilateral hip joint osteoarthritis. IMPRESSION: Acute sigmoid diverticulitis with perforation evidenced by a moderate amount of free air. No abscess. No other acute or significant finding. Please note that all CT scans at this facility use dose modulation, iterative reconstruction, and/or weight-based dosing when appropriate to reduce radiation dose to as low as reasonably achievable. Dictated by Carlos Pacheco MD @ Mar 10 2019 5:59PM Signed by Dr. Carlos Pacheco @ Mar 10 2019 6:10PM
[2019-03-10] MEDS ORDERED: Piperacillin/Tazobactam 3.375 GM in Sodium Chloride 0.9% 50 ML IV ONE (18:14)
[2019-03-10] MEDS ORDERED: metroNIDAZOLE/Normal Saline 500 MG in Premix Bag 1 BAG IV STA (18:14)
--- NOTE | 2019-03-10 19:40 | PCM.CONS ---
H&P History of Present Illness - General Date of Service: 03/10/19 Admit Problem/Dx: Acute diverticulitis w/ moderate pneumoperitoneum Source of Information: Patient, Family History Limitations: Reports: No Limitations - History of Present Illness Initial Comments - Free Text/Narative: 59 y/o gentleman who presented to the ER with sudden onset of LLQ and suprapubic pain. Pain began today. He had a normal BM earlier today and continues to pass gas. Does note pain on ambulation or any jarring motion. Duration of Symptoms: Reports: Hour(s):, Getting Worse Location: Reports: Abdomen Quality: Reports: Pressure, Stabbing Severity: Moderate Improves with: Reports: Rest Worsens with: Reports: Movement Context: Reports: Sick Contact Associated Symptoms: Reports: Fever/Chills (no chills), Loss of Appetite Bladder Pain Score (Numeric/FACES): 10 - Related Data Allergies/Adverse Reactions: Allergies Allergy/AdvReac Type Severity Reaction Status Date / Time No Known Allergies Allergy Verified 03/10/19 16:03 Home Medications: Home Meds Sertraline [Zoloft] 50 mg PO DAILY 01/27/19 [History] Past Medical History - Past Health History Medical/Surgical History: Denies Medical/Surgical History Other HEENT History: wears glasses Cardiovascular History: Gastrointestinal History: Reports: Other (See Below) Other Gastrointestinal History: occasional heartburn Musculoskeletal History: Neurological History: Reports: Concussion Psychiatric History: Reports: Depression - Infectious Disease History Infectious Disease History: Reports: Chicken Pox - Past Surgical History GI Surgical History: Reports: Cholecystectomy, Colonoscopy, EGD Musculoskeletal Surgical History: Reports: Arthroscopic Knee Social & Family History - Family History Family Medical History: Noncontributory - Tobacco Use Smoking Status *Q: Never Smoker - Caffeine Use Caffeine Use: Reports: Coffee - Recreational Drug Use Recreational Drug Use: No H&P Review of Systems - Review of Systems: Review Of Systems: See Below General: Reports: Fever, Malaise, Decreased Appetite. Denies: Chills, Weakness , Fatigue, Weight Loss HEENT: Reports: No Symptoms Pulmonary: Denies: Shortness of Breath, Wheezing Cardiovascular: Denies: Chest Pain Gastrointestinal: Reports: Abdominal Pain, Anorexia, Decreased Appetite, Flatus. Denies: Black Stool, Bloody Stool, Constipation, Diarrhea, Distension, Hematemesis, Hematochezia, Melena Genitourinary: Reports: Other (suprapubic pain). Denies: Dysuria, Frequency, Burning, Pain, Urgency Skin: Denies: Cyanosis, Jaundice, Mottled Psychiatric: Denies: Confusion, Depression, Mood Lability, Anxiety Neurological: Denies: Confusion, Dizziness, Headache, Numbness Hematologic/Lymphatic: Reports: No Symptoms Immunologic: Reports: No Symptoms Exam - Exam Exam: See Below - Vital Signs Vital Signs: Last Vital Signs Temp 98.6 F 03/10/19 19:29 Pulse 101 H 03/10/19 19:29 Resp 16 03/10/19 19:29 BP 137/93 H 03/10/19 19:29 Pulse Ox 98 03/10/19 19:29 Weight: 160 lb 7.944 oz - Exam General: Alert, Oriented, Cooperative, Moderate Distress HEENT: Conjunctiva Clear, EACs Clear, Nares Patent, Pupils Equal, Pupils Reactive. No: Scleral Icterus Neck: Supple, Trachea Midline Lungs: Clear to Auscultation, Normal Respiratory Effort Cardiovascular: Regular Rate, Regular Rhythm, Normal S1, Normal S2. No: Tachycardia GI/Abdominal Exam: Soft, No Distention, No Mass, Guarding, Rebound, Tender, Abnormal Bowel Sounds (hypoactive). No: Rigid (Male) Exam: No Hernia Rectal (Males) Exam: Deferred Back Exam: Normal Inspection Extremities: Normal Inspection, Normal Range of Motion Peripheral Pulses: 4+: Posterior Tibial (L), Posterior Tibial (R), Dorsalis Pedis (L), Dorsalis Pedis (R) Skin: Warm, Dry, Intact Neurological: Cranial Nerves Intact Neuro Extensive - Mental Status: Alert, Oriented x3, Normal Mood/Affect Psychiatric: Alert, Normal Affect, Normal Mood - Patient Data Lab Results Last 24 hrs: Laboratory Results - last 24 hr 03/10/19 03/10/19 03/10/19 Range/Units 16:10 16:10 17:15 WBC 5.86 (4.0-11.0) K/uL RBC 5.12 (4.50-5.90) M/uL Hgb 15.3 (13.0-17.0) g/dL Hct 45.2 (38.0-50.0) % MCV 88.3 (80.0-98.0) fL MCH 29.9 (27.0-32.0) pg MCHC 33.8 (31.0-37.0) g/dL RDW Std Deviation 43.9 (28.0-62.0) fl RDW Coeff of Mati 14 (11.0-15.0) % Plt Count 225 (150-400) K/uL MPV 9.70 (7.40-12.00) fL Neut % (Auto) 47.8 L (48.0-80.0) % Lymph % (Auto) 42.3 H (16.0-40.0) % [place] % (Auto) 7.0 (0.0-15.0) % Eos % (Auto) 2.6 (0.0-7.0) % Baso % (Auto) 0.3 (0.0-1.5) % Neut # (Auto) 2.8 (1.4-5.7) K/uL Lymph # (Auto) 2.5 H (0.6-2.4) K/uL [place] # (Auto) 0.4 (0.0-0.8) K/uL Eos # (Auto) 0.2 (0.0-0.7) K/uL Baso # (Auto) 0.0 (0.0-0.1) K/uL Nucleated RBC % 0.0 /100WBC Nucleated RBCs # 0 K/uL Sodium 140 (136-148) mmol/L Potassium 4.3 (3.5-5.1) mmol/L Chloride 103 (98-107) mmol/L Carbon Dioxide 27.6 (21.0-32.0) mmol/L BUN 20 H (7.0-18.0) mg/dL Creatinine 0.8 (0.8-1.3) mg/dL Est Cr Clr Drug Dosing 97.38 mL/min Estimated GFR (MDRD) > 60.0 ml/min Glucose 101 (74-106) mg/dL Calcium 9.5 (8.5-10.1) mg/dL Total Bilirubin 1.5 H (0.2-1.0) mg/dL AST 26 (15-37) IU/L ALT 24 (14-63) IU/L Alkaline Phosphatase 91 (46-116) U/L Total Protein 8.1 (6.4-8.2) g/dL Albumin 4.2 (3.4-5.0) g/dL Globulin 3.9 (2.6-4.0) g/dL Albumin/Globulin Ratio 1.1 (0.9-1.6) Lipase 158 (73-393) U/L Urine Color YELLOW Urine Appearance CLEAR Urine pH 6.0 (5.0-8.0) Ur Specific [place] >= 1.030 (1.001-1.035) Urine Protein NEGATIVE (NEGATIVE) mg/dL Urine Glucose (UA) NEGATIVE (NEGATIVE) mg/dL Urine Ketones NEGATIVE (NEGATIVE) mg/dL Urine Occult Blood NEGATIVE (NEGATIVE) Urine Nitrite NEGATIVE (NEGATIVE) Urine Bilirubin NEGATIVE (NEGATIVE) Urine Urobilinogen 0.2 (<2.0) EU/dL Ur Leukocyte Esterase NEGATIVE (NEGATIVE) Result Diagrams: 03/10/19 16:10 03/10/19 16:10 Imaging Impressions Last 24 hrs: CT scan personally reviewed. Agree with interpretation regarding moderate amount of free air. There is noted to be right sub-diaphragmatic air. No abscess. Significant sigmoid diverticulosis w/ diverticulitis.. Consult PN Assessment/Plan Procedures: Procedures ASSAY OF LIPASE (01/27/19) ASSAY OF TROPONIN QUANT (01/27/19) COLONOSCOPY AND BIOPSY (12/13/17) COMPLETE CBC W/AUTO DIFF WBC (01/27/19) COMPREHEN METABOLIC PANEL (02/01/19) ECHO EXAM OF ABDOMEN (01/27/19) ELECTROCARDIOGRAM TRACING (01/27/19) EMERGENCY DEPT VISIT (02/02/19) GLYCOSYLATED HEMOGLOBIN TEST (11/17/17) HYDRATE IV INFUSION ADD-ON (01/27/19) LAPARO PROC ABDM/PER/OMENT (02/01/19) LAPAROSCOPIC CHOLECYSTECTOMY (02/01/19) LIPID PANEL (11/16/17) METABOLIC PANEL TOTAL CA (11/16/17) ROUTINE VENIPUNCTURE (02/01/19) THER/PROPH/DIAG INJ IV PUSH (01/27/19) TISSUE EXAM BY PATHOLOGIST (02/01/19) TISSUE EXAM BY PATHOLOGIST (02/01/19) X-RAY EXAM CHEST 1 VIEW (01/27/19) X-RAY EXAM HIP UNI 2-3 VIEWS (01/07/16) (1) Pneumoperitoneum SNOMED Code(s): 78619995 Code(s): K66.8 - OTHER SPECIFIED DISORDERS OF PERITONEUM Priority: High Current Visit: Yes (2) Perforation of sigmoid colon due to diverticulitis SNOMED Code(s): 1182448279762702 Code(s): K57.20 - DVTRCLI OF LG INT W PERFORATION AND ABSCESS W/O BLEEDING Priority: High Current Visit: Yes Problem List Initiated/Reviewed/Updated: Yes Plan: Patient most likely will require urgent exploration, resection and possible diverting colostomy/ileostomy. We do not have ICU bed availability or stomal nurse care available. Recommend patient be transported by ground ambulance to a larger facility with ICU support and stomal nursing care.
== END 2019-03-10 20:03 ==
LOC: MW.ED 15:14
DX: K57.20 Diverticulitis of large intestine with perforation and abscess without bleeding (principal); F32.9 Major depressive disorder, single episode, unspecified; Z90.49 Acquired absence of other specified parts of digestive tract; Z79.899 Other long term (current) drug therapy
CPT/HCPCS: 36415; 74177; 80053; 81003; 83690; 85025; 96361; 96365; 96366; 96375; 96376; 99285; J2270; J2405; J2543; J3490; J7040; J7050; Q9967; 99283

== ENCOUNTER 2021-02-21 06:30 | Day surgery (SDC) | payer SELFPAY ==
[2021-02-21] MEDS ORDERED: Lactated Ringers 1,000 ML IV SCH ×2 (08:00→12:00)
[2021-02-21] MEDS ORDERED: Lidocaine 2% 100 MG/5 ML Syringe ONE (09:20)
[2021-02-21] MEDS ORDERED: propofoL 100 ML ONE (09:20)
[2021-02-21] MEDS ORDERED: Dexmedetomidine 200 MCG/2 ML SDV ONE (09:20)
[2021-02-21] MEDS ORDERED: Ondansetron 4 MG/2 ML SDV ONE (09:20)
--- NOTE | 2021-02-21 09:45 | PCM.PREANE ---
Preanesthetic Assessment - Anesthesia/Transfusion/Family Hx Anesthesia History: Prior Anesthesia Without Reaction Transfusion History: No Prior Transfusion(s) Intubation History: Unknown - Review of Systems General: No Symptoms Pulmonary: No Symptoms Cardiovascular: No Symptoms Gastrointestinal: No Symptoms Neurological: No Symptoms Other: Reports: None - Physical Assessment NPO Status Date: 02/21/21 NPO Status Time: 00:00 Vital Signs: Last Vital Signs Temp 97.5 F 02/21/21 08:45 Pulse 89 02/21/21 08:45 Resp 15 02/21/21 08:45 BP 134/82 02/21/21 08:45 Pulse Ox 96 02/21/21 08:45 Height: 5 ft 8 in Weight: 164 lb ASA Class: 3 Mental Status: Alert & Oriented x3 Airway Class: Mallampati = 2 Dentition: Reports: Normal Dentition ROM/Head Extension: Full Lungs: Clear to Auscultation, Normal Respiratory Effort Cardiovascular: Regular Rate, Regular Rhythm - Allergies Allergies/Adverse Reactions: Allergies Allergy/AdvReac Type Severity Reaction Status Date / Time No Known Allergies Allergy Verified 02/17/21 15:38 - Acknowledgements Anesthesia Type Planned: General Anesthesia Pt an Appropriate Candidate for the Planned Anesthesia: Yes Alternatives and Risks of Anesthesia Discussed w Pt/Guardian: Yes Pt/Guardian Understands and Agrees with Anesthesia Plan: Yes PreAnesthesia Questionnaire - Past Health History Medical/Surgical History: Denies Medical/Surgical History HEENT History: Reports: Cataract Other HEENT History: wears contacts Cardiovascular History: Reports: None Respiratory History: Reports: None Gastrointestinal History: Reports: Cholelithiasis, Colon Polyp, Diverticulosis, Other (See Below) Other Gastrointestinal History: occasional heartburn Genitourinary History: Reports: None Musculoskeletal History: Reports: Arthritis 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 Neurological History: Reports: Concussion Psychiatric History: Reports: Depression Endocrine/Metabolic History: Reports: None Hematologic History: Reports: None Immunologic History: Reports: None Oncologic (Cancer) History: Reports: None Dermatologic History: Reports: None - Infectious Disease History Infectious Disease History: Reports: Chicken Pox - Past Surgical History Head Surgeries/Procedures: Reports: None HEENT Surgical History: Reports: Cataract Surgery Cardiovascular Surgical History: Reports: None Respiratory Surgical History: Reports: None GI Surgical History: Reports: Cholecystectomy, Colon, Colonoscopy, EGD Other GI Surgeries/Procedures: sigmoid resection for ruptured diverticulum Male Surgical History: Reports: None Endocrine Surgical History: Reports: None Neurological Surgical History: Reports: None Musculoskeletal Surgical History: Reports: Arthroscopic Knee Other Musculoskeletal Surgeries/Procedures:: ligament repair Oncologic Surgical History: Reports: None Dermatological Surgical History: Reports: None - SUBSTANCE USE Tobacco Use Status *Q: Never Tobacco User Recreational Drug Use History: No - HOME MEDS Home Medications: Home Meds . [No Known Home Meds] 02/17/21 [History] - CURRENT (IN HOUSE) MEDS Current Meds: Current Medications Lactated Ringer's (Ringers, Lactated) 1,000 mls @ 125 mls/hr IV ASDIRECTED RICHARDSON Last Admin: 02/21/21 09:00 Dose: 125 mls/hr Documented by: Discontinued Medications Dexmedetomidine HCl (Dexmedetomidine 200 Mcg/2 Ml Sdv) Confirm Administered Dose 200 mcg .ROUTE .STK-MED ONE Stop: 02/21/21 09:21 Propofol (Diprivan 100 Ml) Confirm Administered Dose 100 mls @ as directed .ROUTE .STK-MED ONE Stop: 02/21/21 09:21 Lidocaine HCl (Lidocaine 2% 100 Mg/5 Ml Syringe) Confirm Administered Dose 100 mg .ROUTE .STK-MED ONE Stop: 02/21/21 09:21 Ondansetron HCl (Ondansetron 4 Mg/2 Ml Sdv) Confirm Administered Dose 4 mg .ROUTE .STK-MED ONE Stop: 02/21/21 09:21
--- NOTE | 2021-02-21 11:49 | PCM.POSTAN ---
POST ANESTHESIA ASSESSMENT - MENTAL STATUS Mental Status: Alert, Oriented - VITAL SIGNS Vital Signs: Last Vital Signs Temp 97.5 F 02/21/21 08:45 Pulse 62 02/21/21 11:45 Resp 12 02/21/21 11:45 BP 134/82 02/21/21 08:45 Pulse Ox 100 02/21/21 11:45 - RESPIRATORY Respiratory Status: Respiratory Rate WNL, Airway Patent, O2 Saturation Stable - CARDIOVASCULAR CV Status: Pulse Rate WNL, Blood Pressure Stable - GASTROINTESTINAL GI Status: No Symptoms - POST OP HYDRATION Hydration Status: Adequate & Stable
--- NOTE | 2021-02-21 11:49 | PCM48HPAN ---
Post Anesthesia Note - EVALUATION WITHIN 48HRS OF ANESTHETIC Vital Signs in Normal Range: Yes Patient Participated in Evaluation: Yes Respiratory Function Stable: Yes Airway Patent: Yes Cardiovascular Function Stable: Yes Hydration Status Stable: Yes Pain Control Satisfactory: Yes Nausea and Vomiting Control Satisfactory: Yes Mental Status Recovered: Yes Vital Signs: Last Vital Signs Temp 97.5 F 02/21/21 08:45 Pulse 62 02/21/21 11:45 Resp 12 02/21/21 11:45 BP 134/82 02/21/21 08:45 Pulse Ox 100 02/21/21 11:45
--- NOTE | 2021-02-21 12:09 | PCM.OPNOTE ---
- General Post-Op/Procedure Note Date of Surgery/Procedure: 02/21/21 Operative Procedure(s): Colonoscopy with cold rectal polypectomy Pre Op Diagnosis: Personal history of colon polyps. Status post ssigmoid resection for ruptured diverrticulitis. Post-Op Diagnosis: Sigmoid diverticulosis. Rectal polyp. Anesthesia Technique: MAC (ASA II) Primary Surgeon: Ketan Dior Condition: Stable Free Text/Narrative:: DICTATION [id number] CPT CODE [id number]
--- NOTE | 2021-02-21 13:07 | OR ---
SURGEON: Ketan Dior M.D. DATE OF PROCEDURE: 02/21/2021 OPERATION PERFORMED: Colonoscopy with cold rectal polypectomy. PRIMARY SURGEON: Ketan Dior M.D. ANESTHESIA: MAC. ASA CLASSIFICATION: II. PREOPERATIVE DIAGNOSES: 1. Personal history of colon polyps. 2. History of diverticulosis, status post sigmoid resection for ruptured diverticulitis. POSTOPERATIVE DIAGNOSES: 1. Rectal polyp. 2. Sigmoid diverticulosis. DESCRIPTION OF PROCEDURE: The patient was taken to the endoscopy room and positioned on the endoscopy table in the left lateral decubitus position. Time-out was called for appropriate identification of the patient and procedure. Monitored anesthesia care was provided. The colonoscope was inserted into the rectum and advanced to the anastomosis which is easily seen, although a little tricky to maneuver through. Nevertheless, no significant stricture was there and I was able to maneuver the colonoscope above the anastomosis and subsequently to the cecum. The cecum was identified by internal landmarks and external pressure. The colonoscope was retroflexed to visualize the ascending colon from below and then straightened and slowly withdrawn. The cecum, ascending colon, hepatic flexure, transverse colon, splenic flexure, and descending colon showed no tumors, polyps, diverticula, or inflammatory bowel disease. Again, the anastomosis in the sigmoid colon was seen and the patient again had diverticulosis. No stricture, spasm, or bleeding in the sigmoid colon was noted. As the colonoscope was withdrawn into the rectum, one small polyp was encountered and this was removed with cold biopsy forceps. The colonoscope was then retroflexed to visualize the anal orifice from above. No tumors, polyps, or acute hemorrhoidal changes were noted. The colonoscope was then straightened, the rectum aspirated, and the colonoscope removed. The patient tolerated the procedure well and was taken to recovery room in stable condition. [place]STER / JOSEFINA /[id number]
== END 2021-02-21 12:40 | disposition home or self-care (01) ==
LOC: MW.SDS 06:30
PROVIDERS: ATTEND Surgery
DX: Z12.11 Encounter for screening for malignant neoplasm of colon (principal); K62.1 Rectal polyp; K57.30 Diverticulosis of large intestine without perforation or abscess without bleeding; E78.5 Hyperlipidemia, unspecified; K43.2 Incisional hernia without obstruction or gangrene; F41.9 Anxiety disorder, unspecified; R73.01 Impaired fasting glucose; Z87.19 Personal history of other diseases of the digestive system; Z86.010 Personal history of colon polyps; Z98.890 Other specified postprocedural states
CPT/HCPCS: 45380; J2405; J2704; J7120; 00811; 88305

== ENCOUNTER 2022-03-27 06:42 | Day surgery (SDC) | payer OTHER ==
[2022-03-27] MEDS ORDERED: Propofol 200 MG/20 ML SDV ONE (07:22)
[2022-03-27] MEDS ORDERED: fentaNYL 250 MCG/5 ML SDV ONE (07:22)
[2022-03-27] MEDS ORDERED: ceFAZolin 1 GM Vial ONE (07:29)
[2022-03-27] MEDS ORDERED: Bupivacaine 0.5% 30 ML SDV ONE (07:29)
[2022-03-27] MEDS ORDERED: Ropivacaine 0.5% 5 MG/ML 30 ML SDV ONE (07:34)
[2022-03-27] MEDS ORDERED: Dexmedetomidine 200 MCG/2 ML SDV ONE (07:35)
[2022-03-27] MEDS ORDERED: Dexamethasone 4 MG/ML 5 ML MDV ONE (07:41)
[2022-03-27] MEDS ORDERED: Lidocaine 2% 5 ML SDV ONE (07:41)
[2022-03-27] MEDS ORDERED: Sugammadex Sodium 200 MG/2 ML VIAL ONE (07:41)
[2022-03-27] MEDS ORDERED: Rocuronium Bromide 50 MG/5 ML Syringe ONE (07:41)
[2022-03-27] MEDS ORDERED: Metoclopramide 10 MG/2 ML SDV IVPUSH PRN (07:42)
[2022-03-27] MEDS ORDERED: Albuterol 0.083% 2.5 MG/3 ML Neb Soln NEB PRN (07:42)
[2022-03-27] MEDS ORDERED: Naloxone 0.4 MG/ML SDV IVPUSH PRN (07:42)
[2022-03-27] MEDS ORDERED: fentaNYL 50 MCG/ML SDV IVPUSH PRN (07:42)
[2022-03-27] MEDS ORDERED: Ondansetron 4 MG/2 ML SDV IVPUSH PRN (07:42)
[2022-03-27] MEDS ORDERED: HYDROmorphone 1 MG/ML Syringe IVPUSH PRN (07:42)
[2022-03-27] MEDS ORDERED: Phenylephrine HCl In 0.9% NaCl 1 MG/10 ML Vial ONE (08:08)
[2022-03-27] MEDS ORDERED: ePHEDrine 50 MG/ML SDV ONE (08:24)
[2022-03-27] MEDS ORDERED: Acetaminophen/HYDROcodone 325-5 MG Tab PO PRN ×2 (09:36→09:48)
[2022-03-27] MEDS ORDERED: Morphine 2 MG/ML SYRINGE IVPUSH PRN (09:36)
[2022-03-27] MEDS ORDERED: Lactated Ringers 1,000 ML IV SCH (09:45)
== END 2022-03-27 11:52 | disposition home or self-care (01) ==
LOC: MW.SDS 06:42
PROVIDERS: ATTEND Surgery
DX: K43.0 Incisional hernia with obstruction, without gangrene (principal); F41.9 Anxiety disorder, unspecified; F32.A Depression, unspecified; E78.5 Hyperlipidemia, unspecified; Z90.49 Acquired absence of other specified parts of digestive tract; Z98.890 Other specified postprocedural states
CPT/HCPCS: 49561; 49568; C1781; J0131; J0690; J1100; J2704; J2795; J3010; J3490; J7120; 00790; 64488

== ENCOUNTER 2022-10-19 13:10 | Emergency (ER) | payer BC ==
[2022-10-19] MEDS ORDERED: Sodium Chloride 0.9% 1,000 ML IV ONE (15:38)
[2022-10-19 16:25] LABS: CARBON DIOXIDE,CO2 27.7 mmol/L (21.0-32.0)
== END 2022-10-19 17:50 | disposition home or self-care (01) ==
LOC: MW.ED 13:10
DX: R19.7 Diarrhea, unspecified (principal); M19.90 Unspecified osteoarthritis, unspecified site; Z98.890 Other specified postprocedural states; Z79.899 Other long term (current) drug therapy
CPT/HCPCS: 36415; 80053; 83690; 83735; 85025; 87045; 87046; 87328; 87329; 87449; 87899; 96360; 99284; J7030; 99283

== ENCOUNTER 2023-05-18 21:40 | Emergency (ER) | payer BC ==
[2023-05-18] MEDS ORDERED: Sodium Chloride 0.9% 2.5 ML Syringe FLUSH PRN (21:45)
[2023-05-18] MEDS ORDERED: Lidocaine 4% 1 each Patch TOP ONE (21:45)
[2023-05-18] MEDS ORDERED: Ondansetron 4 MG Tab.DIS PO ONE (21:45)
[2023-05-18] MEDS ORDERED: Aspirin 81 MG Tab.Chew PO ONE (21:45)
[2023-05-18] MEDS ORDERED: Cyclobenzaprine 10 MG Tab PO ONE (21:45)
[2023-05-18] MEDS ORDERED: Sodium Chloride 0.9% 10 ML Syringe FLUSH PRN (21:45)
[2023-05-18 22:01] LABS: BASOPHILS ABSOLUTE AUTO 0.04 K/uL (0.00-0.20); BASOPHILS PERCENT AUTO 0.6 % (0.0-1.0); EOSINOPHILS ABSOLUTE AUTO 0.22 K/uL (0.00-0.45); EOSINOPHILS PERCENT AUTO 3.1 % (0.0-6.0); HEMATOCRIT 42.5 % (42.0-52.0); HEMOGLOBIN 14.8 g/dL (14.0-18.0); IMMATURE GRAN ABSOLUTE AUTO 0.02 K/uL (0.00-0.05); IMMATURE GRAN PERCENT AUTO 0.3 % (0.0-0.4); LYMPHOCYTES ABSOLUTE AUTO 3.05 K/uL (1.00-4.80); LYMPHOCYTES PERCENT AUTO 42.9 % (24.0-44.0); MEAN CORPUSCULAR HEMOGLOBIN 30.6 pg (28.0-32.0); MEAN CORPUSCULAR HGB CONC 34.8 g/dL (32.0-36.0); MEAN CORPUSCULAR VOLUME 87.8 fL (83.0-99.0); MONOCYTES ABSOLUTE AUTO 0.76 K/uL (0.00-0.80); MONOCYTES PERCENT AUTO 10.7 % (0.0-8.0); NEUTROPHILS PERCENT AUTO 42.4 % (41.0-71.0); PLATELET COUNT,PLT 267 K/uL (150-400); RED BLOOD CELL COUNT 4.84 M/uL (4.52-5.90); WHITE BLOOD CELL COUNT,WBC 7.11 K/uL (3.9-11.3)
[2023-05-18 22:30] LABS: A/G RATIO 1.1 (0.9-1.6); ALBUMIN 3.7 g/dL (3.4-5.0); BILIRUBIN TOTAL 0.7 mg/dL (0.2-1.0); CALCIUM 8.8 mg/dL (8.5-10.1); CARBON DIOXIDE,CO2 27.3 mmol/L (21.0-32.0); EST CRCL DRUG DOSING (CG) 74.1 mL/min; POTASSIUM,K 3.6 mmol/L (3.5-5.1); PROTEIN TOTAL,TP 7.2 g/dL (6.4-8.2)
== END 2023-05-19 01:15 | disposition home or self-care (01) ==
LOC: MW.ED 21:40
DX: R07.9 Chest pain, unspecified (principal); M54.6 Pain in thoracic spine
CPT/HCPCS: 36415; 71046; 80053; 83690; 84484; 85025; 85379; 93005; 99285; A9270; J3490; 93010; 99283